=== PATIENT | female | born 1990 | race American Indian/Alaskan Native ===

== ENCOUNTER 2019-07-11 10:24 | Outpatient (CLI) | payer OTHER ==
--- NOTE | 2019-07-11 11:38 | Mammography Report ---
DIGITAL DIAGNOSTIC MAMMOGRAM WITH CAD, 07/11/2019 INDICATION: RT POST CLIP TECHNIQUE: Digital right mammographic imaging was performed. This examination was interpreted with the benefit of Computer-aided Detection analysis. COMPARISON: 06/19/2019 FINDINGS: Breast Density: The breasts are extremely dense, which lowers the sensitivity of mammography. A subareolar biopsy clip is identified at 12:00 and is concordant with the site of the biopsy. IMPRESSION: Concordant clip placement. Follow up recommendation: No recall. Post biopsy imaging. A "normal" or negative report should not discourage follow up or biopsy of a clinically significant f inding. A written summary of these findings will be mailed to the patient. The patient will be entered into a mammography reporting system which will generate a reminder letter for the patient's next appointmen t at the appropriate interval. According to the [employer], yearly mammograms are recommended starting at age 40 and continuing as long as a woman is in good health. Breast MRI is recommended for women with an luis manuel roximately 20-25% or greater lifetime risk of breast cancer, including women with a strong family his tory of breast or ovarian cancer and women who have been treated for Hodgkin's disease. Signer Name: Juan Pablo Ray MD Signed: 07/11/2019 11:34 AM Workstation Name: [id number]
--- NOTE | 2019-07-11 12:47 | Ultrasound Report ---
ULTRASOUND-GUIDED NEEDLE CORE BIOPSY RIGHT BREAST WITH CLIP PLACEMENT CLINICAL: Right breast mass at 11:30 o'clock at the [place]. FINDINGS: The procedure was explained to the patient and informed consent was obtained. Ultrasound demonstrated the previously identified superficial mass.. I marked the breast with a felt tip marker and a timeout was called. The skin was prepped with Chloro -Prep and anesthetized with 1% lidocaine. Needle core biopsy was performed through small dermatotomy using ultrasound guidance, 2% lidocaine wi th epinephrine for deep anesthesia and a 14-gauge Achieve biopsy device. 4 cores were obtained and pl aced in formalin. A hydromark clip was deployed within the mass. The patient tolerated the procedure well and there were no apparent complications. Hemostasis was ach ieved with minimal effort and a sterile dressing was applied. A post procedure mammogram demonstrated concordant clip deployment. She left the department in good c ondition and was given instructions for wound care and follow-up. IMPRESSION: Uncomplicated ultrasound guided needle core biopsy with clip placement right breast. Signer Name: Juan Pablo Ray MD Signed: 07/11/2019 12:42 PM Workstation Name: [id number]
== END 2019-07-11 10:25 | disposition home or self-care (01) ==
LOC: SPVWC 10:24
PROVIDERS: ATTEND Surgery
DX: N63.11 Unspecified lump in the right breast, upper outer quadrant (principal); N60.11 Diffuse cystic mastopathy of right breast
CPT/HCPCS: 88305

== ENCOUNTER 2019-07-18 10:12 | Outpatient (CLI) | payer OTHER | END 2019-07-18 10:13 | disposition home or self-care (01) | LOC: SPVWC 10:12 | DX: N63.21 Unspecified lump in the left breast, upper outer quadrant (principal); N60.32 Fibrosclerosis of left breast; R92.8 Other abnormal and inconclusive findings on diagnostic imaging of breast ==

== ENCOUNTER 2020-01-22 08:30 | Outpatient (CLI) | payer OTHER ==
--- NOTE | 2020-01-23 16:03 | Ultrasound Report ---
BILATERAL BREAST ULTRASOUND INDICATION: Follow-up evaluation of findings noted previously, patient with prior benign biopsies in both breasts.. COMPARISON: 07/18/2019, 07/11/2019, 06/19/2019. FINDINGS: Ultrasound of both breasts was performed. RIGHT BREAST: Located in the right breast at the 3:00 position, 2 cm from the nipple, is a 6 x 4 x 8 mm hypoechoic partially circumscribed lesion. This is suspected to represent a complicated cyst. It w as not identified on prior exam. Additionally, in the right breast at 3:00 periareolar location is a partially circumscribed oval 6 x 6 x 3 mm lesion which is also favored to represent a debris-filled o r compensated cyst. A previously biopsied lesion in the right breast at the 11:00 periareolar locatio n appears not significantly changed measuring 1.4 x 1.5 x 0.7 cm with biopsy marker noted. Multiple a dditional benign-appearing simple and minimally complicated cysts are noted. LEFT BREAST: Located in the left breast at the 12:00 periareolar location is a 1.3 x 1.1 x 0.7 cm cir cumscribed lobulated hypoechoic lesion. This was previously biopsied and was found to be benign. Ther e is no interval detrimental change. Located in the left breast at the 2:30 position is a 1.5 x 0.6 x 1.2 cm circumscribed hypoechoic oval lesion. This was not definitely identified on prior exam, but i s suspected to represent a debris-filled/complicated cyst. Multiple additional benign-appearing simpl e and minimally complicated cysts are noted. Targeted ultrasound of the bilateral axillary region shows no abnormal lymph nodes. IMPRESSION: No significant change in biopsy-proven benign lesions in the right breast at the 11:30 position and l eft breast at the 12:30 position. Not identified on prior ultrasound are three new suspected debris filled/complicated cysts. These inc lude right breast 3:00 (2 cm from nipple), right breast 3:00 periareolar location, and left breast 2: 30 position. A six-month follow-up ultrasound of these is recommended. BI-RADS Category 3: Probably Benign. A "normal" or negative report should not discourage follow up or biopsy of a clinically significant f inding. A written summary of these findings will be mailed to the patient. FURTHER INFORMATION: According to the [employer], yearly mammograms are recommend ed starting at age 40 and continuing as long as a woman is in good health. Breast MRI is recommended for women with an approximately 20-25% or greater lifetime risk of breast cancer, including women wi th a strong family history of breast or ovarian cancer and women who have been treated for Hodgkin's disease. Signer Name: Skyler Epstein MD Signed: 01/23/2020 3:58 PM Workstation Name: [id number]
== END 2020-01-22 08:31 | disposition home or self-care (01) ==
LOC: SPVWC 08:30
PROVIDERS: ATTEND Surgery
DX: N60.02 Solitary cyst of left breast (principal); N60.01 Solitary cyst of right breast; N60.32 Fibrosclerosis of left breast; N60.31 Fibrosclerosis of right breast